=== PATIENT | female | born 1945 | race Caucasian/White ===

== ENCOUNTER 2017-10-19 15:13 | Inpatient (IN) | payer MEDICARE ==
[2017-10-19] MEDS ORDERED: NORMAL SALINE 1000 ML 1,000 ML IV ONE (15:56)
--- NOTE | 2017-10-19 15:58 | ER Document Report ---
ED Medical Screen (RME) - General Chief Complaint: Difficulty Swallowing Stated Complaint: LIGHTHEADED Time Seen by Provider: 10/19/17 15:44 Notes: RAPID MEDICAL EVALUATION DISCLOSURE I have seen this patient as part of a Rapid Medical Evaluation and, if applicable, placed any initially appropriate orders. The patient will be seen and fully evaluated, including a full history and physical exam, by a provider ( in Main ED or Fast Track) when a room becomes available. 70F recently dx w esophageal achalasia here w c/o gen weakness jittery fatigue over the past few days. She had a barium swallow performed at [facility] which did show almost complete obstruction and she was told she needed Esophageal Manometry and that [facility] does not offer this. She has not had anything to drink or eat over the past few days so she was sent here by Dr Phan her GI doctor. EXAM Poor skin turgor TRAVEL OUTSIDE OF THE [place] IN LAST 30 DAYS: No - Related Data Allergies/Adverse Reactions: No Known Allergies Allergy (Unverified 10/19/17 15:16) Past Medical History - Social History Chew tobacco use (# tins/day): No Frequency of alcohol use: Rare Drug Abuse: None Renal/ Medical History: Denies: Hx Peritoneal Dialysis Past Surgical History: Reports: Hx Hysterectomy, Hx Orthopedic Surgery - right wrist Physical Exam - Vital signs Vitals: Temp Pulse Resp BP Pulse Ox 98.7 F 81 17 143/65 H 95 10/19/17 15:22 10/19/17 15:22 10/19/17 15:22 10/19/17 15:22 10/19/17 15:22 Course - Vital Signs Vital signs: Temp Pulse Resp BP Pulse Ox 98.7 F 81 17 143/65 H 95 10/19/17 15:22 10/19/17 15:22 10/19/17 15:22 10/19/17 15:22 10/19/17 15:22
[2017-10-19 16:58] LABS: ABSOLUTE EOSINOPHILS # (AUTO) 0.1 10^3/uL (0.0-0.6); ABSOLUTE LYMPHOCYTES (AUTO) 1.5 10^3/uL (0.5-4.7); ABSOLUTE MONOCYTES (AUTO) 0.6 10^3/uL (0.1-1.4); ABSOLUTE NEUT (AUTO) 6.9 10^3/uL (1.7-8.2); BASOPHILS % (AUTO) 0.4 % (0-2); EOSINOPHILS % (AUTO) 1.1 % (0-6); HEMATOCRIT 41.7 % (36.0-47.0); LYMPHOCYTES % (AUTO) 16.5 % (13-45); MEAN CORPUSCULAR HEMOGLOBIN 29.5 pg (27.0-33.4); MEAN CORPUSCULAR HGB CONC 33.7 g/dL (32.0-36.0); MEAN CORPUSCULAR VOLUME 88 fl (80-97); MONOCYTES % (AUTO) 6.6 % (3-13); PLATELET COUNT 242 10^3/uL (150-450); RED BLOOD COUNT 4.75 10^6/uL (3.72-5.28); RED CELL DISTRIBUTION WIDTH 13.1 % (11.5-14.0); SEGMENTED NEUTROPHILS % (AUTO) 75.4 % (42-78); TOTAL CELLS COUNTED % (AUTO) 100 %; WHITE BLOOD COUNT 9.2 10^3/uL (4.0-10.5)
[2017-10-19 17:23] LABS: ANION GAP 17 (5-19)
[2017-10-19 17:24] LABS: ALANINE AMINOTRANSFERASE 26 U/L (9-52); ALBUMIN 4.4 g/dL (3.5-5.0); ALKALINE PHOSPHATASE 68 U/L (38-126); ASPARTATE AMINO TRANSFERASE 27 U/L (14-36); BILIRUBIN,DIRECT 0.4 mg/dL (0.0-0.4); BILIRUBIN,TOTAL 0.7 mg/dL (0.2-1.3); BLOOD UREA NITROGEN 22 mg/dL (7-20); CALCIUM 10.2 mg/dL (8.4-10.2); CARBON DIOXIDE 24 mmol/L (22-30); CHLORIDE 105 mmol/L (98-107); GLUCOSE 76 mg/dL (75-110); SODIUM 145.5 mmol/L (137-145); TOTAL PROTEIN 7.4 g/dL (6.3-8.2)
--- NOTE | 2017-10-19 20:28 | ER Document Report ---
ED General - General Chief Complaint: Difficulty Swallowing Stated Complaint: LIGHTHEADED Time Seen by Provider: 10/19/17 15:44 Notes: Patient is a 72 year old female who presents with a history of several months of progressively worsening dysphasia and odynophagia which has now progressed to inability to swallow even fluids for the past 2 days. She had an endoscopy done on the 13th of this month which showed probable achalasia with severe lower esophageal sphincter strictures. She had a barium swallow done today and no barium was noted to pass from the esophagus into the stomach. Patient also states that she has been feeling somewhat lightheaded over the past 2 days which is worse when she goes from a sitting to standing position. She denies any symptoms currently other than a mild, constant throat discomfort. No history of similar symptoms prior to the past several months. TRAVEL OUTSIDE OF THE [place] IN LAST 30 DAYS: No - Related Data Allergies/Adverse Reactions: No Known Allergies Allergy (Unverified 10/19/17 15:16) Past Medical History - General Information source: Patient - Social History Smoking Status: Never Smoker Chew tobacco use (# tins/day): No Frequency of alcohol use: Rare Drug Abuse: None Lives with: Family Family History: Reviewed & Not Pertinent Patient has suicidal ideation: No Patient has homicidal ideation: No Renal/ Medical History: Denies: Hx Peritoneal Dialysis Past Surgical History: Reports: Hx Hysterectomy, Hx Orthopedic Surgery - right wrist Review of Systems - Review of Systems Notes: Constitutional: Negative for fever. HENT: Positive for sore throat. Eyes: Negative for visual changes. Cardiovascular: Negative for chest pain. Respiratory: Negative for shortness of breath. Gastrointestinal: Positive for inability to swallow Genitourinary: Negative for dysuria. Musculoskeletal: Negative for back pain. Skin: Negative for rash. Neurological: Negative for headaches, weakness or numbness. 10 point ROS negative except as marked above and in HPI. Physical Exam - Vital signs Vitals: Temp Pulse Resp BP Pulse Ox 98.7 F 81 17 143/65 H 95 10/19/17 15:22 10/19/17 15:22 10/19/17 15:22 10/19/17 15:22 10/19/17 15:22 Interpretation: Hypertensive Notes: PHYSICAL EXAMINATION: GENERAL: Well-appearing, well-nourished and in no acute distress. HEAD: Atraumatic, normocephalic. EYES: Pupils equal round and reactive to light, extraocular movements intact, sclera anicteric, conjunctiva are normal. ENT: nares patent, oropharynx clear without exudates. Moderately dry mucous membranes. NECK: Normal range of motion, supple without lymphadenopathy LUNGS: Breath sounds clear to auscultation bilaterally and equal. No wheezes rales or rhonchi. HEART: Regular rate and rhythm without murmurs ABDOMEN: Soft, nontender, normoactive bowel sounds. No guarding, no rebound. No masses appreciated. EXTREMITIES: Normal range of motion, no pitting or edema. No cyanosis. NEUROLOGICAL: No focal neurological deficits. Moves all extremities spontaneously and on command. PSYCH: Normal mood, normal affect. SKIN: Warm, Dry, normal turgor, no rashes or lesions noted. Course - Re-evaluation Re-evalutation: 10/19/17 20:33 Patient presents with progressively worsening inability to swallow, now unable to swallow even water. She had an endoscopy done on the which showed findings consistent with severe achalasia. The patient had a barium swallow done as an outpatient and no barium passed through the lower esophagus into the stomach. The patient has been becoming increasingly lightheaded and has had progressive weight loss. Family is extraordinarily concerned about her inability to tolerate oral intake or tolerating her medications. They referred to the emergency department for further assessment. The patient does note some mild ongoing lightheadedness but denies any additional acute complaints. Exam unremarkable. Review of her endoscopy report does show near complete closure of the lower esophagus. Given her inability tolerate even fluids I do believe she requires hospitalization. I discussed with the turbine operator on-call who confirms that Dr. Riley is electron gun inspector tomorrow. I have therefore discussed with hospitalist Dr. Sarkar who has accepted the patient. 10/19/17 23:38 CT of the neck and chest is worrisome for possible malignancy versus achalasia as the etiology of today's symptoms. - Vital Signs Vital signs: Temp Pulse Resp BP Pulse Ox 97.7 F 81 17 135/57 H 99 10/19/17 22:35 10/19/17 15:22 10/19/17 15:22 10/19/17 22:00 10/19/17 22:35 - Laboratory Result Diagrams: 10/19/17 16:22 10/19/17 16:22 Laboratory results interpreted by me: 10/19/17 16:22 Sodium 145.5 H BUN 22 H Creatinine 0.51 L - Diagnostic Test Radiology reviewed: Reports reviewed Discharge - Discharge Clinical Impression: Inability to swallow, Lightheadedness, Dehydration Condition: Fair Disposition: ADMITTED INPATIENT Admitting Provider: Hospitalist Unit Admitted: Medical Floor
[2017-10-19 21:34] LABS: APPEARANCE,URINE SLIGHTLY-CLOUDY; BILIRUBIN,URINE NEGATIVE (NEGATIVE); COLOR,URINE YELLOW; GLUCOSE, URINE NEGATIVE (NEGATIVE); KETONES,URINE 80 mg/dL (NEGATIVE); LEUKOCYTE ESTERASE,URINE TRACE (NEGATIVE); NITRITE,URINE NEGATIVE (NEGATIVE); PROTEIN,URINE NEGATIVE (NEGATIVE); URINE SPECIFIC GRAVITY 1.024; UROBILINOGEN,URINE NEGATIVE mg/dL (<2.0)
[2017-10-19] MEDS ORDERED: NORMAL SALINE 1000 ML 1,000 ML IV PRN (21:36)
[2017-10-19] MEDS ORDERED: DEXTROSE 50%-WATER 25 GM/50 ML DISP.SYRIN IV PRN ×2 (21:42)
[2017-10-19] MEDS ORDERED: GLUCAGON,HUMAN RECOMB 1 MG INJ SUBCUT PRN (21:42)
[2017-10-19] MEDS ORDERED: DEXTROSE 40% GEL 15 GM TUBE PO PRN ×2 (21:42)
[2017-10-19] MEDS ORDERED: PANTOPRAZOLE SODIUM 40 MG in NORMAL SALINE 100 ML IV SCH (21:45)
--- NOTE | 2017-10-19 22:17 | RADIOLOGY REPORT (SQ) ---
EXAM DESCRIPTION: CT CHEST WITH COMPLETED DATE/TIME: 10/19/2017 9:40 pm REASON FOR STUDY: unable to swallow COMPARISON: None. TECHNIQUE: CT scan of the chest performed using helical scanning technique with dynamic intravenous contrast injection. Images reviewed with lung, soft tissue and bone windows. Reconstructed coronal and sagittal MPR images reviewed. All images stored on PACS. All CT scanners at this facility use dose modulation, iterative reconstruction, and/or weight based d osing when appropriate to reduce radiation dose to as low as reasonably achievable (ALARA). [facility]: Dose Right [facility]: CareDose [facility]: Dose Right [facility]: Teradose 4D [facility]: Trippeo CONTRAST TYPE AND DOSE: contrast/concentration: Isovue 370.00 mg/ml; Total Contrast Delivered: 80.0 ml; Total Saline Delivered: 50.0 ml RENAL FUNCTION: GFR > 60. RADIATION DOSE: CT Rad equipment meets quality standard of care and radiation dose reduction techniq ues were employed. CTDIvol: NaN mGy. DLP: 0 mGy-cm. . LIMITATIONS: None. FINDINGS: LUNGS AND PLEURA: 2.4 cm spiculated mass in the right upper lobe. 2.7 cm density at the l eft base question scar versus infiltrate HILAR AND MEDIASTINAL STRUCTURES: Massive dilatation of the thoracic esophagus. Contains contrast. Assume the patient was given oral contrast. There is generalized thickening of the wall of the esoph elodia distally. A discrete mass is not noted. HEART AND VASCULAR STRUCTURES: No aneurysm or dissection. No central pulmonary emboli. No pericardi al effusion. HARDWARE: None in the chest. UPPER ABDOMEN: No mass identified in the stomach. THYROID AND OTHER SOFT TISSUES: No masses. No adenopathy. BONES: No significant finding. OTHER: No other significant finding. IMPRESSION: Massive dilatation of esophagus. Contains contrast. Generalized thickening of the esop hageal wall distally but no definitive mass lesion in either in the distal esophagus or in the proxim al stomach. Possibly achalasia. 2.4 cm spiculated mass in the right upper lobe. 2.7 cm opacity at the left base which may represent scar infiltrate. TECHNICAL DOCUMENTATION: JOB ID: [id number] Quality ID # [id number]: Final reports with documentation of one or more dose reduction techniques (e.g., Au tomated exposure control, adjustment of the mA and/or kV according to patient size, use of iterative reconstruction technique) 2010 [employer] All Rights Reserved Reading location - IP/workstation name: [email or web address]
--- NOTE | 2017-10-19 22:36 | RADIOLOGY REPORT (SQ) ---
EXAM DESCRIPTION: CT SOFT TISSUE NECK WITH COMPLETED DATE/TIME: 10/19/2017 9:40 pm REASON FOR STUDY: unable to swallow COMPARISON: None. TECHNIQUE: Post IV contrasted scanning from skull base through lung apices with review of bone, soft tissue and lung windows. Reconstructed coronal and sagittal MPR images reviewed. All images stored on PACS. All CT scanners at this facility use dose modulation, iterative reconstruction, and/or weight based d osing when appropriate to reduce radiation dose to as low as reasonably achievable (ALARA). [facility]: Dose Right [facility]: CareDose [facility]: Dose Right [facility]: Teradose 4D [facility]: Pigit CONTRAST TYPE AND DOSE: 80.3 Isovue 370- low osmolar. RENAL FUNCTION: GFR > 60. RADIATION DOSE: . LIMITATIONS: None. FINDINGS: SKULL BASE: Intact. MAJOR SALIVARY GLANDS: No solid or cystic masses. No inflammatory changes. LYMPHADENOPATHY: No adenopathy. MUCOSAL MASSES OR ASYMMETRY: No mucosal masses or asymmetry. LARYNX/CORDS: Nodular changes at the level of the larynx. Worrisome for mass lesion on the right smiley e. VASCULAR STRUCTURES: The major vessels are patent. LUNG APICES: See chest CT BONES: Intact. THYROID: Cysts and calcifications in the right lobe. The PARANASAL SINUSES: Clear. OTHER: Dilated upper esophagus. IMPRESSION: Nodular changes at the level of the larynx worrisome for mass lesion on the right side. Cysts and calcification right lobe of the thyroid gland. COMMENT: Recommend thyroid ultrasound. TECHNICAL DOCUMENTATION: JOB ID: [id number] Quality ID # [id number]: Final reports with documentation of one or more dose reduction techniques (e.g., Au tomated exposure control, adjustment of the mA and/or kV according to patient size, use of iterative reconstruction technique) 2010 [employer]- All Rights Reserved Reading location - IP/workstation name: [email or web address]
[2017-10-19] MEDS: PANTOPRAZOLE SODIUM 40 MG VIAL IV SCH (23:35)
[2017-10-20] MEDS ORDERED: DEXTROSE 5%-NORMAL SALINE 1,000 ML IV PRN (00:04)
--- NOTE | 2017-10-20 01:04 | PDOC H&P ---
History of Present Illness Admission Date/PCP: 10/19/17 20:54 Patient complains of: Difficulty swallowing History of Present Illness: KAITLYNN LOPEZ is a 72 year old female who presents to the emergency department with a history of frequently swallowing that has been progressing for the last year, dysphagia, odynophagia that she refers has GERD that has been worsening since last November. For the last 2 days patient has been unable to swallow liquids, solids, if she swallows her pills after a few sips of water vomits all of them. Patient is following with GI, Dr.Eric Rodriguez, had a recent EGD October 16 findings dilatation in the upper third and middle third of the esophagus with a stenosis in the lower third of the esophagus was severe, probably achalasia. Recommended to perform a barium swallow which was done today. Walker poorly after procedure and was shaking. The patient was feeling lightheaded/dizziness as per her inability to swallow it was recommended to come to the emergency department. Fortunately we have GI tomorrow and Dr. Geiger was contacted by the ED attending. Daughter tells me that the patient needs an esophageal manometry that only can be done in this hospital. CT neck and chest was requested by the ED attending's he tells me that that is part of the workup that was requesting. Denies fever, cough, chest pain, shortness of breath, abdominal pain, diarrhea or constipation or changes in her urine. Past Medical History Past Medical History: No past medical history Medical History: None Cardiac Medical History: Denies: Congestive Heart Failure, Myocardial Infarction, Hypertension Pulmonary Medical History: Denies: Asthma, Bronchitis, Chronic Obstructive Pulmonary Disease (COPD), Pneumonia, Tuberculosis Neurological Medical History: Denies: Seizures Renal/ Medical History: Denies: End Stage Renal Disease GI Medical History: Denies: Cirrhosis, Gastroesophageal Reflux Disease Musculoskeltal Medical History: Denies: Arthritis Psychiatric Medical History: Denies: Bipolar Disorder, Depression Hematology: Denies: Anemia, Bleeding Tendencies Past Surgical History Past Surgical History: Reports: Hysterectomy, Orthopedic Surgery - right wrist Social History Lives with: Family Smoking Status: Never Smoker Frequency of Alcohol Use: None Hx Recreational Drug Use: No - Advance Directive Resuscitation Status: Do Not Resuscitate Family History Family History: Reviewed & Not Pertinent Parental Family History Reviewed: No Children Family History Reviewed: No Sibling(s) Family History Reviewed.: No Medication/Allergy Home Medications: No Home Medications 10/19/17 Allergies/Adverse Reactions: No Known Allergies Allergy (Unverified 10/19/17 15:16) Review of Systems Review of Systems: As outlined in the HPI, all others negative Physical Exam Vital Signs: Temp Pulse Resp BP Pulse Ox 97.8 F 65 17 133/52 H 96 10/19/17 23:50 10/19/17 23:50 10/19/17 23:50 10/19/17 23:50 10/19/17 23:50 Intake & Output 10/18/17 10/19/17 10/20/17 06:59 06:59 06:59 Weight 58.8 kg Additional comments: General appearance: Well-developed, well-nourished, alert and cooperative, and appears to be in no acute distress Head: Normocephalic Eyes: PEERL, EOMI, vision is grossly intact. Ears: External auditory canal and tympanic membranes dry, hearing grossly intact. Nose: No nasal discharge. Throat: Oral cavity and pharynx normal. No inflammation, swelling, exudate or lesions. Neck: Neck supple, nontender without lymphadenopathy, masses or thyromegaly. Cardiac: Normal S1 and S2. No S3, S4 or murmurs. Rhythm is regular. There is no peripheral edema, cyanosis or pallor. Extremities are warm and well perfused. Capillary refill is less than 2 seconds. No carotid bruits. Lungs: Clear to auscultation and percussion without rales, rhonchi, wheezing or diminished breath sounds. Not using accessory muscles. Abdomen: Positive bowel sounds. Soft. Nondistended, nontender. No guarding or rebound. No masses. No hepatosplenomegaly Extremities: No significant deformity or joint abnormality. No edema. Peripheral pulses intact. No varicosities. Neurological: Cranial nerves II through XII grossly intact. Strength and sensation symmetric and intact throughout. Reflexes 2+ throughout. Skin: Skin normal color, texture and turgor with no lesions or eruptions, warm and dry. Psychiatric: The mental examination revealed the patient was oriented to person , place, and time. The patient was able to demonstrate good judgment on recent , without hallucinations, abnormal affect or abnormal behaviors. Results Laboratory Results: 10/19/17 21:05 Urine Color YELLOW Urine Appearance SLIGHTLY-CLOUDY Urine pH 5.0 Ur Specific [place] 1.024 Urine Protein NEGATIVE Urine Glucose (UA) NEGATIVE Urine Ketones 80 H Urine Blood SMALL H Urine Nitrite NEGATIVE Ur Leukocyte Esterase TRACE H Urine WBC (Auto) 15 Urine RBC (Auto) 3 Impressions: Chest CT 10/19/17 20:20 IMPRESSION: Massive dilatation of esophagus. Contains contrast. Generalized thickening of the esophageal wall distally but no definitive mass lesion in either in the distal esophagus or in the proximal stomach. Possibly achalasia. 2.4 cm spiculated mass in the right upper lobe. 2.7 cm opacity at the left base which may represent scar infiltrate. Soft Tissue Neck CT 10/19/17 20:20 IMPRESSION: Nodular changes at the level of the larynx worrisome for mass lesion on the right side. Cysts and calcification right lobe of the thyroid gland. Assessment & Plan - Diagnosis (1) Achalasia of esophagus Is this a current diagnosis for this admission?: Yes Plan: Patient comes with difficulty swallowing that has been worsening for the last 2 days. Patient follows with GI and so far has had an EGD and barium swallow within the last week. Apparently the plan is to do an esophageal manometry, we have GI tomorrow and consultation will be placed. For now the patient will be kept n.p.o., with IV fluids. We will give IV Protonix. CT neck and chest has been done as part of the GI workup. Possible laringeal cancer identified. (2) Dehydration Is this a current diagnosis for this admission?: Yes Plan: Likely the origin of her dizziness, patient was started on IV fluids with normal saline and I had to change it to D5 with normal saline secondary to her hypoglycemia. (3) Hypoglycemia Is this a current diagnosis for this admission?: Yes Plan: Nurse called me after patient was on the floor and tells me that her blood sugar was 67, I started the patient on D5 with normal saline running at 75 cc/ h. Accu-Cheks every 6 hours. - Time Time Spent: 30 to 50 Minutes Medications reviewed and adjusted accordingly: Yes Anticipated discharge: Home Within: within 48 hours
[2017-10-20 05:36] LABS: ANION GAP 15 (5-19); BLOOD UREA NITROGEN 15 mg/dL (7-20); CALCIUM 9.2 mg/dL (8.4-10.2); CARBON DIOXIDE 20 mmol/L (22-30); CHLORIDE 111 mmol/L (98-107); GLUCOSE 97 mg/dL (75-110); POTASSIUM 3.8 mmol/L (3.6-5.0); SODIUM 145.5 mmol/L (137-145)
[2017-10-20] MEDS: ENOXAPARIN SODIUM INJ 40 MG/0.4 ML DISP.SYRIN SUBCUT SCH (09:36)
--- NOTE | 2017-10-20 10:53 | Physician Advisory Note ---
Physician Advisor ProgressNote .: Pursuant to the plan for [facility], I have reviewed the medical record for this patient. Physician Advisor Statement: Nice documentation of achalasia w/possible laryngeal CA/inability to keep down any liquids/nutrition x 2-3 days (after increasing difficulty x mo.s). Please consider documenting, if you agree: 1. "Acute hypernatremia, due to " 2. "suspected protein-calorie malnutrition [state mild, mod, or severe] with BMI 22.3, ____[wt loss of >10% over 6mo has been documented by nursing, ]" [if possible, give specifics on intake, wt loss, loss of SQ fat & muscle mass, diminished hand microbiology lab manager strength, & clinical importance such as (A) nutritional assessment ordered, (B) modified diet or supplements ordered, (C) additional labs ordered, (D) prolonged wound healing time, (E) delayed infxn clearance] 3. Medical necessity: Please document clinical reasons pt not yet safe for d/ c home later today, & then may change to Inpatient status. 4. If it doesn't get ruled out, please continue to document the "possible laryngeal CA" through to [facility]. Thanks! CK
--- NOTE | 2017-10-20 11:47 | PDOC PROGRESS REPORT ---
<VICKFEDERICAANNIKA - Last Filed: 10/20/17 11:47> Subjective Progress Note for:: 10/20/17 Subjective:: Barby Morrison is a pleasant, thin female seen resting in bed. She is awake, alert and oriented 3. Her sister is at her bedside. She denies any chest pain, shortness of breath or dyspnea at rest. She states she has had a worsening cough over the last year. Primarily the cough is productive, but is very harsh and it has caused her to vomit at times. Her main complaint is severe , worsening dysphagia to even liquids over the last 3 days. She states she has lost 8 lbs over the last week. She has been seeing Dr Phan, product safety test engineer , as an outpatient and is being worked up for possible achalasia. She underwent barium swallow yesterday at [facility] and barium did not pass through. She has become extremely weak and lightheaded due to dehydration. She denies any nausea, abdominal pain or diarrhea. She denies any headaches. She denies any fevers or chills. Reason For Visit: DYSPHAGIA Physical Exam Vital Signs: Temp Pulse Resp BP Pulse Ox 97.6 F 64 12 128/51 H 97 10/20/17 07:29 10/20/17 07:29 10/20/17 07:29 10/20/17 07:29 10/20/17 07:29 Intake & Output 10/19/17 10/20/17 10/21/17 06:59 06:59 06:59 Weight 58.8 kg General appearance: PRESENT: no acute distress, thin, well-developed Head exam: PRESENT: atraumatic, normocephalic Eye exam: PRESENT: conjunctiva pink, EOMI, PERRLA. ABSENT: scleral icterus Ear exam: PRESENT: normal external ear exam Mouth exam: PRESENT: moist, tongue midline Neck exam: PRESENT: tenderness - to palpation along both sides of her lower neck. ABSENT: carotid bruit, JVD, lymphadenopathy, thyromegaly Respiratory exam: PRESENT: clear to auscultation chad. ABSENT: rales, rhonchi, wheezes Cardiovascular exam: PRESENT: RRR. ABSENT: diastolic murmur, rubs, systolic murmur Pulses: PRESENT: normal dorsalis pedis pul Vascular exam: PRESENT: normal capillary refill GI/Abdominal exam: PRESENT: normal bowel sounds, soft. ABSENT: distended, guarding, mass, organolmegaly, rebound, tenderness Rectal exam: PRESENT: deferred Extremities exam: PRESENT: full ROM. ABSENT: calf tenderness, clubbing, pedal edema Musculoskeletal exam: PRESENT: ambulatory, full ROM, normal inspection Neurological exam: PRESENT: alert, awake, oriented to person, oriented to place , oriented to time, oriented to situation, CN II-XII grossly intact. ABSENT: motor sensory deficit Psychiatric exam: PRESENT: appropriate affect, normal mood. ABSENT: homicidal ideation, suicidal ideation Skin exam: PRESENT: dry, intact, warm. ABSENT: cyanosis, rash Results Laboratory Results: 10/20/17 03:58 10/19/17 10/20/17 21:05 03:58 Sodium 145.5 H Potassium 3.8 Chloride 111 H Carbon Dioxide 20 L Anion Gap 15 BUN 15 Creatinine 0.47 L Est GFR ( Amer) > 60 Est GFR (Non-Af Amer) > 60 Glucose 97 Calcium 9.2 Magnesium 1.9 Urine Color YELLOW Urine Appearance SLIGHTLY-CLOUDY Urine pH 5.0 Ur Specific [place] 1.024 Urine Protein NEGATIVE Urine Glucose (UA) NEGATIVE Urine Ketones 80 H Urine Blood SMALL H Urine Nitrite NEGATIVE Ur Leukocyte Esterase TRACE H Urine WBC (Auto) 15 Urine RBC (Auto) 3 Impressions: Chest CT 10/19/17 20:20 IMPRESSION: Massive dilatation of esophagus. Contains contrast. Generalized thickening of the esophageal wall distally but no definitive mass lesion in either in the distal esophagus or in the proximal stomach. Possibly achalasia. 2.4 cm spiculated mass in the right upper lobe. 2.7 cm opacity at the left base which may represent scar infiltrate. Soft Tissue Neck CT 10/19/17 20:20 IMPRESSION: Nodular changes at the level of the larynx worrisome for mass lesion on the right side. Cysts and calcification right lobe of the thyroid gland. Assessment & Plan - Diagnosis (1) Dysphagia QualifierTitle: Dysphagia type: pharyngoesophageal phase Qualified Code(s ): R13.14 - Dysphagia, pharyngoesophageal phase Is this a current diagnosis for this admission?: Yes Plan: Patient has had progressive severe dysphagia to the point of not even being able to swallow liquids this week. She has had an 8 pound weight loss over the last 7 days. She was seen by Dr. Jhoan Lozano, product safety test engineer, as an outpatient. She was thought to have possible achalasia. She had previous EGD. She underwent barium esophagram yesterday and barium did not go through. She has become progressively weak and lightheaded due to dehydration. Case was discussed with Dr. Oviedo, product safety test engineer. There is concern for possible laryngeal mass being a laryngeal cancer which could be causing a pseudo- achalasia. Her distal esophagus is also noted to to have wall thickening as well as dilatation. Plan for repeat EGD with Dr. Riley. Dr. Jane, ENT surgeon consulted as well. (2) Mass of right lung Is this a current diagnosis for this admission?: Yes Plan: Patient has a 2.4 spiculated upper lobe lung mass, very concerning for malignancy. She is a life long nonsmoker, but was exposed to second hand smoke as a child. She has had worsening harsh cough over the last year. Cases was discussed with Dr Singer, oncologist, who will see the patient as well. Findings regarding the CT of her neck and chest were discussed with the patient , and at the patient's consent, her sister and her daughter Belen. Patient's is in a skilled nursing with Alzheimer's disease (3) Inability to swallow Is this a current diagnosis for this admission?: Yes Plan: Continue IV D51/2NS for hydration for now. (4) Nodule of larynx Is this a current diagnosis for this admission?: Yes Plan: ENT surgery consult pending (5) Lightheadedness Is this a current diagnosis for this admission?: Yes Plan: Secondary to dehydration and hypoglycemia due to inability to swallow (6) Metabolic acidosis Is this a current diagnosis for this admission?: Yes Plan: Likely secondary to dehydration and lack of adequate dietary intake (7) Hypernatremia Is this a current diagnosis for this admission?: Yes Plan: Secondary to dehydration due to above problems. Will change fluids to D51/2NS (8) Protein-calorie malnutrition, moderate Is this a current diagnosis for this admission?: Yes Plan: Evidenced by BMI of 22. She has always been thin, but has lost 8 lbs over the last week due to inability to eat and drink. She may require PEG for nutrition (9) Hypoglycemia Is this a current diagnosis for this admission?: Yes Plan: Secondary to severe dysphagia and inability to eat or drink - Time Time Spent with patient: 35 or more minutes Total Critical Time (Minutes): 35 Medications reviewed and adjusted accordingly: Yes - Inpatient Certification Based on my medical assessment, after consideration of the patient's comorbidities, presenting symptoms, or acuity I expect that the services needed warrant INPATIENT care.: Yes I certify that my determination is in accordance with my understanding of Medicare's requirements for reasonable and necessary INPATIENT services [42 CFR 412.3e].: Yes Medical Necessity: Failure to Improve With Outpatient Therapy, Need For IV Fluids, Risk of Complication if Not Cared For in Hospital <LAURITA JONES M - Last Filed: 10/20/17 18:06> Subjective Reason For Visit: DYSPHAGIA,ACHALASIA,DEHYDRATION,HYPOGLYCEMIA Physical Exam Vital Signs: Temp Pulse Resp BP Pulse Ox 98.2 F 63 14 136/54 H 97 10/20/17 16:10 10/20/17 16:10 10/20/17 16:10 10/20/17 16:10 10/20/17 16:10 Intake & Output 10/19/17 10/20/17 10/21/17 06:59 06:59 06:59 Weight 58.8 kg Results Laboratory Results: 10/20/17 03:58 10/19/17 10/20/17 21:05 03:58 Sodium 145.5 H Potassium 3.8 Chloride 111 H Carbon Dioxide 20 L Anion Gap 15 BUN 15 Creatinine 0.47 L Est GFR ( Amer) > 60 Est GFR (Non-Af Amer) > 60 Glucose 97 Calcium 9.2 Magnesium 1.9 Urine Color YELLOW Urine Appearance SLIGHTLY-CLOUDY Urine pH 5.0 Ur Specific [place] 1.024 Urine Protein NEGATIVE Urine Glucose (UA) NEGATIVE Urine Ketones 80 H Urine Blood SMALL H Urine Nitrite NEGATIVE Ur Leukocyte Esterase TRACE H Urine WBC (Auto) 15 Urine RBC (Auto) 3 Impressions: Chest CT 10/19/17 20:20 IMPRESSION: Massive dilatation of esophagus. Contains contrast. Generalized thickening of the esophageal wall distally but no definitive mass lesion in either in the distal esophagus or in the proximal stomach. Possibly achalasia. 2.4 cm spiculated mass in the right upper lobe. 2.7 cm opacity at the left base which may represent scar infiltrate. Soft Tissue Neck CT 10/19/17 20:20 IMPRESSION: Nodular changes at the level of the larynx worrisome for mass lesion on the right side. Cysts and calcification right lobe of the thyroid gland. Provider Note Provider Note: I have discussed the patient in detail with NIYAH Truong. I am in agreement with her evaluation and plan.
[2017-10-20] MEDS ORDERED: DEXTROSE 5%-1/2 NORMAL SALINE 1,000 ML IV ONE (13:19)
--- NOTE | 2017-10-20 13:30 | PDOC CONSULTATION ---
Consultation Consult Date: 10/20/17 Attending physician:: LILIBETH WALKER Consult reason:: thickening of the esophagus with dysphagia History of Present Illness Admission Date/PCP: 10/19/17 20:54 History of Present Illness: KAITLYNN LOPEZ is a 72 year old female patient presented to the ED not being able tolerate oral intake patient found to have possible lung lesion had a barium swallow yesterday that showed dilated esophagus patient has been having dysphagia has had some weight loss patient has seen Dr Rodriguez in the past ? if had recent EGD done asked to see patient work up basically incomplete has possible lesion that could be giving a pseudoachalasia type picture will need repeat EGD Oncology is on board Past Medical History Cardiac Medical History: Denies: Congestive Heart Failure, Myocardial Infarction, Hypertension Pulmonary Medical History: Denies: Asthma, Bronchitis, Chronic Obstructive Pulmonary Disease (COPD), Pneumonia, Tuberculosis Neurological Medical History: Denies: Seizures Renal/ Medical History: Denies: End Stage Renal Disease GI Medical History: Denies: Cirrhosis, Gastroesophageal Reflux Disease Musculoskeltal Medical History: Denies: Arthritis Psychiatric Medical History: Denies: Bipolar Disorder, Depression Hematology: Denies: Anemia, Bleeding Tendencies Past Surgical History Past Surgical History: Reports: Hysterectomy, Orthopedic Surgery - right wrist Social History Lives with: Family Smoking Status: Never Smoker Frequency of Alcohol Use: None Hx Recreational Drug Use: No - Advance Directive Resuscitation Status: Do Not Resuscitate Family History Family History: Reviewed & Not Pertinent Parental Family History Reviewed: Yes Children Family History Reviewed: Unknown Sibling(s) Family History Reviewed.: Unknown Medication/Allergy Home Medications: Multivit/Folic Acid/Vit K1 [One-A-Day Women's 50 Plus Tab] 1 each PO DAILY 10/20 Allergies/Adverse Reactions: No Known Allergies Allergy (Unverified 10/20/17 09:53) Review of Systems Constitutional: PRESENT: weakness. ABSENT: fever(s), headache(s), night sweats Eyes: ABSENT: visual disturbances Ears: ABSENT: hearing changes Nose, Mouth, and Throat: ABSENT: mouth pain, sore throat Cardiovascular: ABSENT: orthropnea, palpitations Respiratory: ABSENT: dyspnea, hemoptysis Gastrointestinal: PRESENT: dysphagia. ABSENT: diarrhea, hematochezia, melena Genitourinary: ABSENT: dysuria, hematuria Musculoskeletal: ABSENT: joint swelling Integumentary: ABSENT: pruritus Neurological: ABSENT: syncope, tingling, tremor(s), vertigo Endocrine: ABSENT: polydipsia, polyphagia, polyuria Hematologic/Lymphatic: ABSENT: easy bruising Physical Exam Vital Signs: Temp Pulse Resp BP Pulse Ox 98.0 F 65 16 134/52 H 98 10/20/17 11:02 10/20/17 11:02 10/20/17 11:02 10/20/17 11:02 10/20/17 11:02 Intake & Output 10/19/17 10/20/17 10/21/17 06:59 06:59 06:59 Weight 58.8 kg General appearance: PRESENT: cooperative, mild distress Head exam: PRESENT: atraumatic, normocephalic Eye exam: PRESENT: EOMI, PERRLA. ABSENT: nystagmus, periorbital swelling, scleral icterus Mouth exam: PRESENT: moist, neck supple Throat exam: ABSENT: tonsillar exudate, tonsillogmegaly Neck exam: ABSENT: meningismus, tenderness, thyromegaly Respiratory exam: PRESENT: symmetrical, unlabored. ABSENT: tachypnea, wheezes Cardiovascular exam: PRESENT: RRR, +S1, +S2 GI/Abdominal exam: PRESENT: soft. ABSENT: rebound, rigid, tenderness Extremities exam: ABSENT: joint swelling Musculoskeletal exam: PRESENT: full ROM Neurological exam: PRESENT: alert, awake, oriented to time, oriented to situation, CN II-XII grossly intact Focused psych exam: ABSENT: restlessness Skin exam: PRESENT: normal color. ABSENT: mottled, pallor, urticaria, vesicles Results Laboratory Results: 10/20/17 03:58 10/19/17 10/20/17 21:05 03:58 Sodium 145.5 H Potassium 3.8 Chloride 111 H Carbon Dioxide 20 L Anion Gap 15 BUN 15 Creatinine 0.47 L Est GFR ( Amer) > 60 Est GFR (Non-Af Amer) > 60 Glucose 97 Calcium 9.2 Magnesium 1.9 Urine Color YELLOW Urine Appearance SLIGHTLY-CLOUDY Urine pH 5.0 Ur Specific [place] 1.024 Urine Protein NEGATIVE Urine Glucose (UA) NEGATIVE Urine Ketones 80 H Urine Blood SMALL H Urine Nitrite NEGATIVE Ur Leukocyte Esterase TRACE H Urine WBC (Auto) 15 Urine RBC (Auto) 3 Impressions: Chest CT 10/19/17 20:20 IMPRESSION: Massive dilatation of esophagus. Contains contrast. Generalized thickening of the esophageal wall distally but no definitive mass lesion in either in the distal esophagus or in the proximal stomach. Possibly achalasia. 2.4 cm spiculated mass in the right upper lobe. 2.7 cm opacity at the left base which may represent scar infiltrate. Soft Tissue Neck CT 10/19/17 20:20 IMPRESSION: Nodular changes at the level of the larynx worrisome for mass lesion on the right side. Cysts and calcification right lobe of the thyroid gland. Assessment & Plan - Diagnosis (1) Inability to swallow Is this a current diagnosis for this admission?: Yes Plan: has dysphagia has seen Dr Rodriguez recently had barium swallow yesterday, no passage of barium thru EG junction with dilated esophagus has new lung lesion patient may have had EGD in the past no apparent report of obstruction ? pseudoachalasia will need repeat EGD Risks, benefits and alternatives are discussed will place on schedule spoke with Ms Truong - Time Time Spent: 50 to 70 Minutes
[2017-10-20] MEDS: PANTOPRAZOLE SODIUM 40 MG VIAL IV SCH (21:22)
[2017-10-21 07:41] LABS: ANION GAP 11 (5-19); BLOOD UREA NITROGEN 9 mg/dL (7-20); CALCIUM 9.2 mg/dL (8.4-10.2); CARBON DIOXIDE 20 mmol/L (22-30); CHLORIDE 113 mmol/L (98-107); GLUCOSE 89 mg/dL (75-110); POTASSIUM 3.4 mmol/L (3.6-5.0); SODIUM 144.3 mmol/L (137-145)
--- NOTE | 2017-10-21 08:21 | PDOC CONSULTATION ---
Consultation Consult Date: 10/21/17 Attending physician:: LAURITA JONES Consult reason:: Concern of esophageal mass, right-sided laryngeal mass, thyroid abnormality, dysphagia History of Present Illness Admission Date/PCP: 10/20/17 12:59 Patient complains of: Dysphasia, nausea and vomiting, weight loss History of Present Illness: KAITLYNN LOPEZ is a 72 year old female with a one-year history of dysphasia, up to this point she has been followed closely by gastroenterology who feels like this is achalasia. There have been things done to her esophagus that have improved things for a short period of time but it seems to continue to worsen. However over the last 1 week, she has had complete dysphagia to solids and liquids, nothing seems to be going down, ultimately she presented here because of that, in addition she lost about 10 pounds over the last 1-2 weeks. She had imaging done with soft tissue CT of the neck, this indicated an abnormality on the right side of larynx, concerning for a mass, there also is thyroid calcifications in the thyroid looks abnormal as well. CT of the chest was also done, and there is thickening of the lower esophageal area, that could be consistent with achalasia versus mass. There is also a 2.4 cm spiculated mass in the right lung.. Of note she is not having any pain anywhere else. She does not have any personal smoking or drinking history. Past Medical History Cardiac Medical History: Denies: Congestive Heart Failure, Myocardial Infarction, Hypertension Pulmonary Medical History: Denies: Asthma, Bronchitis, Chronic Obstructive Pulmonary Disease (COPD), Pneumonia, Tuberculosis Neurological Medical History: Denies: Seizures Renal/ Medical History: Denies: End Stage Renal Disease GI Medical History: Denies: Cirrhosis, Gastroesophageal Reflux Disease Musculoskeltal Medical History: Denies: Arthritis Psychiatric Medical History: Denies: Bipolar Disorder, Depression Hematology: Denies: Anemia, Bleeding Tendencies Past Surgical History Past Surgical History: Reports: Hysterectomy, Orthopedic Surgery - right wrist Social History Information Source: Patient Lives with: Family Smoking Status: Never Smoker Frequency of Alcohol Use: None Hx Recreational Drug Use: No - Advance Directive Resuscitation Status: Do Not Resuscitate Family History Family History: Reviewed & Not Pertinent Parental Family History Reviewed: Yes Children Family History Reviewed: Yes Sibling(s) Family History Reviewed.: Yes Medication/Allergy Home Medications: Multivit/Folic Acid/Vit K1 [One-A-Day Women's 50 Plus Tab] 1 each PO DAILY 10/20 Allergies/Adverse Reactions: No Known Allergies Allergy (Unverified 10/20/17 09:53) Review of Systems Constitutional: PRESENT: fatigue, weakness, weight loss Nose, Mouth, and Throat: PRESENT: sore throat Gastrointestinal: PRESENT: dysphagia, heartburn, nausea, vomiting Musculoskeletal: ABSENT: joint swelling Neurological: ABSENT: abnormal gait, abnormal speech, confusion, dizziness, focal weakness, syncope Physical Exam Vital Signs: Temp Pulse Resp BP Pulse Ox 97.6 F 58 L 16 119/47 L 97 10/20/17 23:14 10/20/17 23:14 10/20/17 23:14 10/20/17 23:14 10/20/17 23:14 Intake & Output 10/20/17 10/21/17 10/22/17 06:59 06:59 06:59 Weight 60 kg General appearance: PRESENT: no acute distress, well-developed, well-nourished Head exam: PRESENT: atraumatic, normocephalic Eye exam: PRESENT: conjunctiva pink, EOMI, PERRLA. ABSENT: scleral icterus Ear exam: PRESENT: normal external ear exam Mouth exam: PRESENT: moist, tongue midline Neck exam: ABSENT: carotid bruit, JVD, lymphadenopathy, thyromegaly Respiratory exam: PRESENT: clear to auscultation chad. ABSENT: rales, rhonchi, wheezes Cardiovascular exam: PRESENT: RRR. ABSENT: diastolic murmur, rubs, systolic murmur Pulses: PRESENT: normal dorsalis pedis pul Vascular exam: PRESENT: normal capillary refill GI/Abdominal exam: PRESENT: normal bowel sounds, soft. ABSENT: distended, guarding, mass, organolmegaly, rebound, tenderness Rectal exam: PRESENT: deferred Extremities exam: PRESENT: full ROM. ABSENT: calf tenderness, clubbing, pedal edema Neurological exam: PRESENT: alert, awake, oriented to person, oriented to place , oriented to time, oriented to situation, CN II-XII grossly intact. ABSENT: motor sensory deficit Psychiatric exam: PRESENT: appropriate affect, normal mood. ABSENT: homicidal ideation, suicidal ideation Skin exam: PRESENT: dry, intact, warm. ABSENT: cyanosis, rash Results Laboratory Results: 10/21/17 06:19 10/21/17 06:19 Sodium 144.3 Potassium 3.4 L Chloride 113 H Carbon Dioxide 20 L Anion Gap 11 BUN 9 Creatinine 0.41 L Est GFR ( Amer) > 60 Est GFR (Non-Af Amer) > 60 Glucose 89 Calcium 9.2 Impressions: Chest CT 10/19/17 20:20 IMPRESSION: Massive dilatation of esophagus. Contains contrast. Generalized thickening of the esophageal wall distally but no definitive mass lesion in either in the distal esophagus or in the proximal stomach. Possibly achalasia. 2.4 cm spiculated mass in the right upper lobe. 2.7 cm opacity at the left base which may represent scar infiltrate. Soft Tissue Neck CT 10/19/17 20:20 IMPRESSION: Nodular changes at the level of the larynx worrisome for mass lesion on the right side. Cysts and calcification right lobe of the thyroid gland. Status: Image reviewed by me Assessment & Plan - Diagnosis (1) Laryngeal mass Is this a current diagnosis for this admission?: Yes Plan: Unknown if this is the cause of her swallowing difficulty, I have discussed her case with Dr. Baker, ENT who needs to see her and consider nasopharyngoscopy at least to look at the larynx. In addition he looked at the CT and felt that the thyroid looks abnormal as well, so thyroid ultrasound was done and this is pending. (2) Mass of right lung Is this a current diagnosis for this admission?: Yes Plan: At this point I would not consider CT-guided biopsy of this area, she has a never smoking history, so primary lung cancer becomes less likely, prior to doing any sort of biopsy of this area I would favor getting her to an outpatient setting and planning for PET/CT, and only doing biopsy to a PET positive area. (3) Dysphagia Qualifiers: Dysphagia type: pharyngoesophageal phase Qualified Code(s): R13.14 - Dysphagia, pharyngoesophageal phase Is this a current diagnosis for this admission?: Yes Plan: Her history it does seem like possible achalasia, although mass in the esophagus could not be ruled out, Dr. Riley will plan for scope today. Unsure if either the laryngeal area or the thyroid is playing into this. - Time Time Spent: Greater than 70 Minutes - Inpatient Certification Based on my medical assessment, after consideration of the patient's comorbidities, presenting symptoms, or acuity I expect that the services needed warrant INPATIENT care.: Yes I certify that my determination is in accordance with my understanding of Medicare's requirements for reasonable and necessary INPATIENT services [42 CFR 412.3e].: Yes Medical Necessity: Need For IV Fluids, Need for Surgery, Risk of Complication if Not Cared For in Hospital
--- NOTE | 2017-10-21 09:08 | RADIOLOGY REPORT (SQ) ---
EXAM DESCRIPTION: U/S THYROID/SFT TISS HD NECK COMPLETED DATE/TIME: 10/21/2017 7:36 am REASON FOR STUDY: Thyroid nodules COMPARISON: CT soft tissue neck 10/19/2017 TECHNIQUE: Dynamic and static booker-scale images acquired of the thyroid gland. Selected additional c olor/power Doppler images recorded. All images stored to PACS. LIMITATIONS: None. FINDINGS: The thyroid gland is overall normal in size, right lobe thyroid 3.9 x 1 x 1.7 cm in size. Left lobe 3.8 x 1.7 x 0.8 cm in size. Normal thickness of the thyroid isthmus less than 2 mm in thi ckness. There are multiple benign colloid cysts scattered throughout the thyroid gland, less than 7 mm in siz e. Benign coarse dense calcification right lower pole thyroid gland. IMPRESSION: Multiple benign-appearing colloid cysts and benign right lower pole thyroid calcificatio n. TECHNICAL DOCUMENTATION: JOB ID: [id number] [employer]- All Rights Reserved Reading location - IP/workstation name: [email or web address]
[2017-10-21] MEDS ORDERED: ONDANSETRON HCL INJ/PF 4 MG/2 ML SDV ONE (09:35)
[2017-10-21] MEDS ORDERED: MIDAZOLAM 2 MG/2 ML INJ ONE ×2 (09:35→09:36)
[2017-10-21] MEDS ORDERED: NALOXONE HCL INJ/PF 0.4 MG/1 ML SDV ONE (09:35)
[2017-10-21] MEDS ORDERED: DIPHENHYDRAMINE HCL 50 MG/ML VIAL ONE (09:35)
[2017-10-21] MEDS ORDERED: FLUMAZENIL INJ 0.5 MG/5 ML VIAL ONE (09:36)
[2017-10-21] MEDS ORDERED: FENTANYL CITRATE INJ/PF 100 MCG/2 ML AMPUL ONE (09:36)
[2017-10-21] MEDS ORDERED: GLUCAGON,HUMAN RECOMB 1 MG INJ ONE (09:36)
[2017-10-21] MEDS ORDERED: EPINEPHRINE INJ 1 MG/10 ML DISP.SYRIN ONE (09:36)
[2017-10-21] MEDS ORDERED: POTASSI CL 20 MEQ/50 ML RIDER 20 MEQ/50 ML RTUPB IV SCH (10:00)
--- NOTE | 2017-10-21 10:39 | Operative Report ---
Operative Report DATE OF SURGERY: 10/21/17 Operative Report: The risks benefits and alternatives of the procedure explained to the patient in detail and informed consent is obtained.A GIF Olympus video scope was inserted into the patient's mouth and hypopharynx, the esophagus is identified intubated and insufflated, the scope was then advanced through the esophagus stomach and duodenum, retroflexion maneuver is done, the esophagus stomach and first and second portions of the duodenum examined PREOPERATIVE DIAGNOSIS: Questionable achalasia. Retained food in the esophagus on previous upper endoscopy. Questionable stricture. Thickened esophagus POSTOPERATIVE DIAGNOSIS: Was able to complete EGD. Gastritis status post biopsy rule out Helicobacter pylori. Benign gastric polyps. Thickened esophagus due to lack of motility however there is no further food in the esophagus. Distal esophageal junction does not appear to be relaxing. Retroflexed view does not show any mass lesion on the gastric side. We will need manometry as an outpatient. Consideration for POEM OPERATION: EGD with biopsy SURGEON: LILIBETH WALKER ANESTHESIA: Moderate Sedation - 3 mg of Versed, 25 mics of fentanyl. Conscious sedation monitoring time 30 minutes. TISSUE REMOVED OR ALTERED: As noted above. COMPLICATIONS: None. ESTIMATED BLOOD LOSS: None. INTRAOPERATIVE FINDINGS: No esophageal obstruction noted, no stricture, no mass lesions. Patient does likely have achalasia PROCEDURE: Patient tolerated procedure well. She is sent back to her room in good condition. She should be able to tolerate clears. She will need an outpatient manometry study. Thereafter she will need possible consideration for POEM procedure , available at a tertiary institution, [facility]
[2017-10-21] MEDS: ENOXAPARIN SODIUM INJ 40 MG/0.4 ML DISP.SYRIN SUBCUT SCH (11:13)
[2017-10-21] MEDS ORDERED: POTASSIUM CHLORIDE 20 MEQ/50 ML RTU IV SCH (12:00)
[2017-10-21] MEDS: PANTOPRAZOLE SODIUM 40 MG VIAL IV SCH (21:15)
[2017-10-22 05:42] LABS: ANION GAP 14 (5-19); BLOOD UREA NITROGEN 7 mg/dL (7-20); CALCIUM 9.3 mg/dL (8.4-10.2); CARBON DIOXIDE 21 mmol/L (22-30); CHLORIDE 111 mmol/L (98-107); GLUCOSE 70 mg/dL (75-110); POTASSIUM 3.4 mmol/L (3.6-5.0); SODIUM 145.9 mmol/L (137-145)
[2017-10-22 05:44] LABS: ABSOLUTE EOSINOPHILS # (AUTO) 0.3 10^3/uL (0.0-0.6); ABSOLUTE LYMPHOCYTES (AUTO) 1.5 10^3/uL (0.5-4.7); ABSOLUTE MONOCYTES (AUTO) 0.6 10^3/uL (0.1-1.4); ABSOLUTE NEUT (AUTO) 2.9 10^3/uL (1.7-8.2); BASOPHILS % (AUTO) 0.7 % (0-2); EOSINOPHILS % (AUTO) 4.8 % (0-6); HEMATOCRIT 35.5 % (36.0-47.0); HEMOGLOBIN 12.2 g/dL (12.0-15.5); LYMPHOCYTES % (AUTO) 28.9 % (13-45); MEAN CORPUSCULAR HEMOGLOBIN 29.7 pg (27.0-33.4); MEAN CORPUSCULAR HGB CONC 34.3 g/dL (32.0-36.0); MEAN CORPUSCULAR VOLUME 86 fl (80-97); MONOCYTES % (AUTO) 11.6 % (3-13); PLATELET COUNT 192 10^3/uL (150-450); RED BLOOD COUNT 4.11 10^6/uL (3.72-5.28); RED CELL DISTRIBUTION WIDTH 13.1 % (11.5-14.0); TOTAL CELLS COUNTED % (AUTO) 100 %; WHITE BLOOD COUNT 5.3 10^3/uL (4.0-10.5)
[2017-10-22] MEDS ORDERED: POTASSIUM CHLORIDE 20 MEQ/15 ML UDCUP PO ONE (08:30)
[2017-10-22] MEDS: ENOXAPARIN SODIUM INJ 40 MG/0.4 ML DISP.SYRIN SUBCUT SCH (08:30)
--- NOTE | 2017-10-22 08:30 | PDOC PROGRESS REPORT ---
Subjective Progress Note for:: 10/22/17 Subjective:: Patient states that she is tolerating liquids, but would prefer to be eating a full meal. She is anxious to arrange for the surgery/further treatment of the esophageal problem. Further arrangements are to be made later today. ROS: denies pain. No dyspnea. Able to ambulate without difficulty. Reason For Visit: DYSPHAGIA,ACHALASIA,DEHYDRATION,HYPOGLYCEMIA Physical Exam Vital Signs: Temp Pulse Resp BP Pulse Ox 97.9 F 68 16 137/56 H 96 10/21/17 23:56 10/21/17 23:56 10/21/17 23:56 10/21/17 23:56 10/21/17 23:56 Intake & Output 10/21/17 10/22/17 10/23/17 06:59 06:59 06:59 Intake Total 2704 Balance 2704 Weight 60 kg 59.9 kg General appearance: PRESENT: no acute distress Respiratory exam: PRESENT: clear to auscultation chad, unlabored Cardiovascular exam: PRESENT: RRR Extremities exam: ABSENT: pedal edema Neurological exam: PRESENT: alert, awake, oriented to person, oriented to place , oriented to time, oriented to situation Psychiatric exam: PRESENT: appropriate affect Skin exam: PRESENT: normal color Results Laboratory Results: 10/22/17 04:04 10/22/17 04:04 10/22/17 10/22/17 04:04 04:04 WBC 5.3 RBC 4.11 Hgb 12.2 Hct 35.5 L MCV 86 MCH 29.7 MCHC 34.3 RDW 13.1 Plt Count 192 Seg Neutrophils % 54.0 Lymphocytes % 28.9 Monocytes % 11.6 Eosinophils % 4.8 Basophils % 0.7 Absolute Neutrophils 2.9 Absolute Lymphocytes 1.5 Absolute Monocytes 0.6 Absolute Eosinophils 0.3 Absolute Basophils 0.0 Sodium 145.9 H Potassium 3.4 L Chloride 111 H Carbon Dioxide 21 L Anion Gap 14 BUN 7 Creatinine 0.44 L Est GFR ( Amer) > 60 Est GFR (Non-Af Amer) > 60 Glucose 70 L Calcium 9.3 Magnesium 1.7 Impressions: Chest CT 10/19/17 20:20 IMPRESSION: Massive dilatation of esophagus. Contains contrast. Generalized thickening of the esophageal wall distally but no definitive mass lesion in either in the distal esophagus or in the proximal stomach. Possibly achalasia. 2.4 cm spiculated mass in the right upper lobe. 2.7 cm opacity at the left base which may represent scar infiltrate. Soft Tissue Neck CT 10/19/17 20:20 IMPRESSION: Nodular changes at the level of the larynx worrisome for mass lesion on the right side. Cysts and calcification right lobe of the thyroid gland. Thyroid Ultrasound 10/21/17 00:00 IMPRESSION: Multiple benign-appearing colloid cysts and benign right lower pole thyroid calcification. Assessment & Plan - Diagnosis (1) Achalasia of esophagus Is this a current diagnosis for this admission?: Yes Plan: To have definitive treatment at tertiary center. Await further biopsies performed yesterday. (2) Laryngeal mass Is this a current diagnosis for this admission?: Yes Plan: To be evaluated by ENT in the near future. (3) Mass of right lung Is this a current diagnosis for this admission?: Yes Plan: Plan for PET scan as outpatient after the esophagus has been treated. - Plan Summary Plan Summary: Agree with plans to treat esophagus first, awaiting pathology reports. Will follow as outpatient as well.
--- NOTE | 2017-10-22 08:58 | PDOC PROGRESS REPORT ---
Subjective Progress Note for:: 10/21/17 Subjective:: The patient is resting in her bed. She had her upper endoscopy performed this morning and tolerated it well. It is felt that she likely has achalasia. At this point she is doing a trial of clear liquids. So far she has been able to drink some tea. She denies fever chills. No chest pain, shortness of breath or cough. No nausea vomiting so far today. No abdominal pain. Her only complaint is that she cannot swallow. She has no urinary complaints Reason For Visit: DYSPHAGIA,ACHALASIA,DEHYDRATION,HYPOGLYCEMIA Physical Exam Vital Signs: Temp Pulse Resp BP Pulse Ox 98.2 F 63 16 140/52 H 98 10/21/17 20:15 10/21/17 20:15 10/21/17 20:15 10/21/17 20:15 10/21/17 20:15 Intake & Output 10/20/17 10/21/17 10/22/17 06:59 06:59 06:59 Intake Total 1704 Balance 1704 Weight 60 kg General appearance: PRESENT: no acute distress, well-developed, well-nourished Head exam: PRESENT: atraumatic, normocephalic Respiratory exam: PRESENT: clear to auscultation chad. ABSENT: rales, rhonchi, wheezes Cardiovascular exam: PRESENT: RRR. ABSENT: diastolic murmur, rubs, systolic murmur GI/Abdominal exam: PRESENT: normal bowel sounds, soft. ABSENT: distended, guarding, mass, organolmegaly, rebound, tenderness Rectal exam: PRESENT: deferred Extremities exam: PRESENT: full ROM. ABSENT: calf tenderness, clubbing, pedal edema Musculoskeletal exam: PRESENT: ambulatory Neurological exam: PRESENT: alert, awake, oriented to person, oriented to place , oriented to time, oriented to situation, CN II-XII grossly intact. ABSENT: motor sensory deficit Psychiatric exam: PRESENT: appropriate affect, normal mood. ABSENT: homicidal ideation, suicidal ideation Skin exam: PRESENT: dry, intact, warm. ABSENT: cyanosis, rash Results Laboratory Results: 10/21/17 06:19 10/21/17 06:19 Sodium 144.3 Potassium 3.4 L Chloride 113 H Carbon Dioxide 20 L Anion Gap 11 BUN 9 Creatinine 0.41 L Est GFR ( Amer) > 60 Est GFR (Non-Af Amer) > 60 Glucose 89 Calcium 9.2 Impressions: Chest CT 10/19/17 20:20 IMPRESSION: Massive dilatation of esophagus. Contains contrast. Generalized thickening of the esophageal wall distally but no definitive mass lesion in either in the distal esophagus or in the proximal stomach. Possibly achalasia. 2.4 cm spiculated mass in the right upper lobe. 2.7 cm opacity at the left base which may represent scar infiltrate. Soft Tissue Neck CT 10/19/17 20:20 IMPRESSION: Nodular changes at the level of the larynx worrisome for mass lesion on the right side. Cysts and calcification right lobe of the thyroid gland. Thyroid Ultrasound 10/21/17 00:00 IMPRESSION: Multiple benign-appearing colloid cysts and benign right lower pole thyroid calcification. Assessment & Plan - Diagnosis (1) Dysphagia Qualifiers: Dysphagia type: pharyngoesophageal phase Qualified Code(s): R13.14 - Dysphagia, pharyngoesophageal phase Is this a current diagnosis for this admission?: Yes Plan: We are doing a trial of clear liquids. She does have an abnormal CT scan of the neck with some nodular areas noted at the level of the larynx. She had an EGD performed this morning that did not have any acute findings. She does have an enlarged thyroid. Ultrasound revealed multiple colloid cysts. Overall she will follow-up with GI as an outpatient. We need to document that she is able to tolerate some p.o. intake prior to discharge (2) Lung mass Is this a current diagnosis for this admission?: Yes Plan: She is being followed by oncology. The patient wants no further workup for the lung mass until she has dealt with her esophageal issues. (3) Laryngeal mass Is this a current diagnosis for this admission?: Yes Plan: It is unclear at this point. Workup is ongoing. (4) Metabolic acidosis Is this a current diagnosis for this admission?: Yes Plan: Improving (5) Achalasia Is this a current diagnosis for this admission?: Yes Plan: The GI service is following. The patient would like to have a surgical procedure to correct this. (6) Hypernatremia Is this a current diagnosis for this admission?: Yes Plan: Likely due to dehydration (7) Dehydration Is this a current diagnosis for this admission?: Yes Plan: Resolved with IV fluid hydration (8) Moderate protein-calorie malnutrition Is this a current diagnosis for this admission?: Yes Plan: Due to severe dysphasia. Continue clear liquid diet and supplements (9) Hypoglycemia Is this a current diagnosis for this admission?: Yes Plan: Due to poor p.o. intake. Improved - Time Time Spent with patient: 25-34 minutes - Inpatient Certification Medical Necessity: Other - Inpatient hospitalization remains necessary. We will need to see if she can tolerate p.o. intake prior to discharge. Hopefully we can get her stabilized and further workup can be obtained as an outpatient.
--- NOTE | 2017-10-22 10:07 | PDOC PROGRESS REPORT ---
Subjective Progress Note for:: 10/22/17 Subjective:: The patient is a 72-year-old female who presented to the emergency room with a 2 week history of increasing ill inability to tolerate oral intake. Imaging studies revealed a nodular area concerning for malignancy at the level of the larynx and also a lung lesion. The patient has been evaluated by the GI service as well as oncology. In regards to her lung lesions she is just guided to pursue outpatient workup after her esophageal issues have been dealt with. In regards to her esophageal issues she had a thyroid ultrasound which reveals multiple colloid cysts. She had an upper endoscopy performed yesterday which did not note a mass lesion. At this point the working diagnosis is that she has achalasia. Dr. Riley has recommended a manometry which will need to be performed as an outpatient. He also believes she is going to need evaluation for potential POEM procedure at a tertiary center. The patient had multiple electrolyte abnormalities and hypoglycemia at the time of admission. She has been hydrated and improving. Yesterday she was started on a clear liquid diet and so far she seems to be tolerating it although she does have difficulty swallowing. I have spoken at length to the patient's daughter on the phone this morning. Her name is Lillie Trujillo [phone]. She has concerns about the patient being able to maintain her hydration and was wondering whether we could potentially transfer her to have the surgery done this weekend. After a long discussion I think she has a better understanding. She would like for me to keep the patient in the hospital today to maximize her status and see if we could talk advance her diet to a full liquid diet prior to discharge. I do believe this is her manometry has been scheduled for 8:30 tomorrow morning and we will try to get her out of the hospital first thing so that she can keep this appointment. Reason For Visit: DYSPHAGIA,ACHALASIA,DEHYDRATION,HYPOGLYCEMIA Physical Exam Vital Signs: Temp Pulse Resp BP Pulse Ox 97.9 F 68 16 137/56 H 96 10/21/17 23:56 10/21/17 23:56 10/21/17 23:56 10/21/17 23:56 10/21/17 23:56 Intake & Output 10/21/17 10/22/17 10/23/17 06:59 06:59 06:59 Intake Total 2704 Balance 2704 Weight 60 kg 59.9 kg General appearance: PRESENT: no acute distress, thin, well-developed Mouth exam: PRESENT: moist, tongue midline, other - Enlarged thyroid noted Neck exam: PRESENT: thyromegaly Respiratory exam: PRESENT: clear to auscultation chad. ABSENT: rales, rhonchi, wheezes Cardiovascular exam: PRESENT: RRR. ABSENT: diastolic murmur, rubs, systolic murmur GI/Abdominal exam: PRESENT: normal bowel sounds, soft. ABSENT: distended, guarding, mass, organolmegaly, rebound, tenderness Rectal exam: PRESENT: deferred Extremities exam: PRESENT: full ROM. ABSENT: calf tenderness, clubbing, pedal edema Musculoskeletal exam: PRESENT: ambulatory Neurological exam: PRESENT: alert, awake, oriented to person, oriented to place , oriented to time, oriented to situation, CN II-XII grossly intact. ABSENT: motor sensory deficit Psychiatric exam: PRESENT: appropriate affect, normal mood. ABSENT: homicidal ideation, suicidal ideation Skin exam: PRESENT: dry, intact, warm. ABSENT: cyanosis, rash Results Laboratory Results: 10/22/17 04:04 10/22/17 04:04 10/22/17 10/22/17 04:04 04:04 WBC 5.3 RBC 4.11 Hgb 12.2 Hct 35.5 L MCV 86 MCH 29.7 MCHC 34.3 RDW 13.1 Plt Count 192 Seg Neutrophils % 54.0 Lymphocytes % 28.9 Monocytes % 11.6 Eosinophils % 4.8 Basophils % 0.7 Absolute Neutrophils 2.9 Absolute Lymphocytes 1.5 Absolute Monocytes 0.6 Absolute Eosinophils 0.3 Absolute Basophils 0.0 Sodium 145.9 H Potassium 3.4 L Chloride 111 H Carbon Dioxide 21 L Anion Gap 14 BUN 7 Creatinine 0.44 L Est GFR ( Amer) > 60 Est GFR (Non-Af Amer) > 60 Glucose 70 L Calcium 9.3 Magnesium 1.7 Impressions: Chest CT 10/19/17 20:20 IMPRESSION: Massive dilatation of esophagus. Contains contrast. Generalized thickening of the esophageal wall distally but no definitive mass lesion in either in the distal esophagus or in the proximal stomach. Possibly achalasia. 2.4 cm spiculated mass in the right upper lobe. 2.7 cm opacity at the left base which may represent scar infiltrate. Soft Tissue Neck CT 10/19/17 20:20 IMPRESSION: Nodular changes at the level of the larynx worrisome for mass lesion on the right side. Cysts and calcification right lobe of the thyroid gland. Thyroid Ultrasound 10/21/17 00:00 IMPRESSION: Multiple benign-appearing colloid cysts and benign right lower pole thyroid calcification. Assessment & Plan - Diagnosis (1) Dysphagia Qualifiers: Dysphagia type: pharyngoesophageal phase Qualified Code(s): R13.14 - Dysphagia, pharyngoesophageal phase Is this a current diagnosis for this admission?: Yes Plan: At this point the patient is tolerating clear liquid diet. We will try a trial of full liquids and see if she can tolerate it. I am not so sure she is going to be able to do this. It is my understanding that Dr. Riley is trying to get in touch with the surgeon regarding the patient. Hopefully we will have more information as the day progresses. (2) Lung mass Is this a current diagnosis for this admission?: Yes Plan: Workup will be obtained as an outpatient. She wants to deal with her esophageal issues first. Oncology is following and we appreciate their assistance (3) Laryngeal mass Is this a current diagnosis for this admission?: Yes Plan: No evidence of mass lesion was noted on upper endoscopy. (4) Metabolic acidosis Is this a current diagnosis for this admission?: Yes Plan: Improving. (5) Achalasia Is this a current diagnosis for this admission?: Yes Plan: She will need a POEM procedure performed at a tertiary center. Dr. Riley is working on this. (6) Hypernatremia Is this a current diagnosis for this admission?: Yes Plan: Her level is still high but improving. Likely due to dehydration (7) Dehydration Is this a current diagnosis for this admission?: Yes Plan: We will continue IV fluids today. She is improving. (8) Moderate protein-calorie malnutrition Is this a current diagnosis for this admission?: Yes Plan: Continue supplements. She has tolerated Ensure clear. The dietitian is following. (9) Hypoglycemia Is this a current diagnosis for this admission?: Yes Plan: Her blood sugar is on the low side but no true hypoglycemic episodes. - Time Time Spent with patient: 35 or more minutes - Inpatient Certification Medical Necessity: Need For IV Fluids - Inpatient hospitalization remains necessary. The patient still has some electrolyte abnormalities and she is requiring parenteral fluids today. I am concerned that she will not be able to take in enough intake to maintain her hydration. I would like to see if she could tolerate full liquids prior to leaving the hospital. She likely will be discharged in the morning to have her outpatient manometry and I would like to try to maximize her status here in the hospital today. Hopefully she will be discharged in the morning., Other
[2017-10-22 12:56] VITALS: BP 129/53
--- NOTE | 2017-10-22 14:36 | PDOC PROGRESS REPORT ---
Subjective Progress Note for:: 10/22/17 Subjective:: Daughter called to say her mom not able to leave hospital till tomorrow patient needs manometry study but can only be done as an outpatient ( per [facility] protocol) patient has suspected achalasia and needs confirmation for potential referral for POEM procedure I have confirmed that it can be done at [facility] the issue now is that patient needs to have discharge orders by 10/22/17, so that patient can have outpatient procedure done 10/23/17 the only other time to do this would be Thursday10/27/17 once the manometry study is performed, this along with report from EGD and results of Barium swallow can be forwarded to Dr Graves's office in [facility] for consideration of POEM I have already spoken to daughter and made her aware that the consultation would be done next week at the earliest , but more than likely later than that, she had expressed understanding and verbalized that to me when I made the phone call to her earlier today from my office the issue is now one of potential discharge multiple people including lifestyle coordinator are in contact with the patient' s daughter who seems to be the patient's only mode of transportation at this point. Ms Field , the hospitalist physician has been updated with respect to the problem patient appears only be able to be picked up tomorrow 10/23/17. The manometry procedure then would not be covered by insurance since the date of the procedure coincides with the date of discharge. Option #2: patient can be discharged and she can return on another day for the manometry even if she is transferred to a tertiary institution, she may not be able to get an inpatient manometry study patient's daughter has been offered all of these options. As of the last upated at 1430 hours, patient is going to be discharged today. Reason For Visit: DYSPHAGIA,ACHALASIA,DEHYDRATION,HYPOGLYCEMIA Physical Exam Vital Signs: Temp Pulse Resp BP Pulse Ox 98.0 F 60 20 129/53 H 96 10/22/17 13:00 10/22/17 13:00 10/22/17 13:00 10/22/17 13:00 10/22/17 13:00 Intake & Output 10/21/17 10/22/17 10/23/17 06:59 06:59 06:59 Intake Total 2704 Balance 2704 Weight 60 kg 59.9 kg General appearance: PRESENT: no acute distress, well-developed, well-nourished Head exam: PRESENT: atraumatic, normocephalic Eye exam: PRESENT: EOMI, PERRLA. ABSENT: scleral icterus Mouth exam: PRESENT: moist, neck supple Throat exam: ABSENT: tonsillar exudate, tonsillogmegaly Neck exam: ABSENT: meningismus, tenderness, thyromegaly Respiratory exam: PRESENT: symmetrical, unlabored. ABSENT: tachypnea, wheezes Cardiovascular exam: PRESENT: RRR, +S1, +S2 GI/Abdominal exam: PRESENT: soft. ABSENT: rebound, rigid, tenderness Neurological exam: PRESENT: oriented to time, oriented to situation, CN II-XII grossly intact Skin exam: PRESENT: normal color. ABSENT: mottled, pallor, urticaria, vesicles Results Laboratory Results: 10/22/17 04:04 10/22/17 04:04 10/22/17 10/22/17 04:04 04:04 WBC 5.3 RBC 4.11 Hgb 12.2 Hct 35.5 L MCV 86 MCH 29.7 MCHC 34.3 RDW 13.1 Plt Count 192 Seg Neutrophils % 54.0 Lymphocytes % 28.9 Monocytes % 11.6 Eosinophils % 4.8 Basophils % 0.7 Absolute Neutrophils 2.9 Absolute Lymphocytes 1.5 Absolute Monocytes 0.6 Absolute Eosinophils 0.3 Absolute Basophils 0.0 Sodium 145.9 H Potassium 3.4 L Chloride 111 H Carbon Dioxide 21 L Anion Gap 14 BUN 7 Creatinine 0.44 L Est GFR ( Amer) > 60 Est GFR (Non-Af Amer) > 60 Glucose 70 L Calcium 9.3 Magnesium 1.7 Impressions: Chest CT 10/19/17 20:20 IMPRESSION: Massive dilatation of esophagus. Contains contrast. Generalized thickening of the esophageal wall distally but no definitive mass lesion in either in the distal esophagus or in the proximal stomach. Possibly achalasia. 2.4 cm spiculated mass in the right upper lobe. 2.7 cm opacity at the left base which may represent scar infiltrate. Soft Tissue Neck CT 10/19/17 20:20 IMPRESSION: Nodular changes at the level of the larynx worrisome for mass lesion on the right side. Cysts and calcification right lobe of the thyroid gland. Thyroid Ultrasound 10/21/17 00:00 IMPRESSION: Multiple benign-appearing colloid cysts and benign right lower pole thyroid calcification. Assessment & Plan - Diagnosis (1) Inability to swallow Is this a current diagnosis for this admission?: Yes Plan: EGD findings are suspicious for Achalasia patient will need manometry study she is being discharged today as of the last update Will be able to get manometry study done tomorrow once results are obtained, will forward EGD report, barium swallow and results of manometry results to Dr Graves When and how quick Pricilla can see patient, then , will no longer be under my direct control. patient's daughter has been made aware of this fact her manometry study has been scheduled for 10/23/17 at 8:30am - Time Time Spent with patient: 15-24 minutes
--- NOTE | 2017-10-22 14:39 | PDOC DISCHARGE SUMMARY ---
General - Admit/Disc Date/PCP Admission Date/Primary Care Provider: 10/20/17 12:59 [employer]: Dr. Riley Oncologist: Dr. Singer ENT: Dr. Baker Discharge Date: 10/22/17 - Discharge Diagnosis (1) Dysphagia Is this a current diagnosis for this admission?: Yes Summary: The patient likely has achalasia. She is scheduled for an outpatient manometry study to be performed in the morning. Dr. Riley is going to set up outpatient surgical follow-up for the patient. (2) Lung mass Is this a current diagnosis for this admission?: Yes Summary: She will defer any workup on this lung mass until after her esophageal issues which are more acute have been dealt with. (3) Laryngeal mass Is this a current diagnosis for this admission?: Yes Summary: She was seen by Dr. Lino corbett today who performed the procedure. No evidence of laryngeal mass. This appears to be ruled out. (4) Metabolic acidosis Is this a current diagnosis for this admission?: Yes Summary: Improving. (5) Achalasia Is this a current diagnosis for this admission?: Yes Summary: She will be set up for surgical consultation after her manometry at a tertiary center for potential POEM procedure (6) Hypernatremia Is this a current diagnosis for this admission?: Yes Summary: Improving. (7) Dehydration Is this a current diagnosis for this admission?: Yes Summary: Resolved with IV fluid hydration (8) Moderate protein-calorie malnutrition Is this a current diagnosis for this admission?: Yes Summary: I recommend a liquid multivitamin in the short-term. Also ensure clear (9) Hypoglycemia Is this a current diagnosis for this admission?: Yes Summary: Much improved. She has had no further episodes - Additional Information Resuscitation Status: Full Code Discharge Diet: As Tolerated, Other (Comments) - clear liquid Discharge Activity: Activity As Tolerated, Balance Activity w/Rest History of Present Illness Patient complains of: Difficulty swallowing History of Present Illness: KAITLYNN LOPEZ is a 72 year old female who presented to the emergency room with a 2 week history of worsening dysphagia Hospital Course Hospital Course: he patient is a 72-year-old female who presented to the emergency room with a 2 week history of increasing ill inability to tolerate oral intake. Imaging studies revealed a nodular area concerning for malignancy at the level of the larynx and also a lung lesion. The patient has been evaluated by the GI service as well as oncology. In regards to her lung lesions she is just guided to pursue outpatient workup after her esophageal issues have been dealt with. In regards to her esophageal issues she had a thyroid ultrasound which reveals multiple colloid cysts. She had an upper endoscopy performed yesterday which did not note a mass lesion. At this point the working diagnosis is that she has achalasia. Dr. Riley has recommended a manometry which will need to be performed as an outpatient. He also believes she is going to need evaluation for potential POEM procedure at a tertiary center. The patient had multiple electrolyte abnormalities and hypoglycemia at the time of admission. She has been hydrated and improving. Yesterday she was started on a clear liquid diet and so far she seems to be tolerating it although she does have difficulty swallowing. I have spoken at length to the patient's daughter on the phone this morning. Her name is Lillie Trujillo . She has concerns about the patient being able to maintain her hydration and was wondering whether we could potentially transfer her to have the surgery done this weekend. After a long discussion I think she has a better understanding. The patient is stable at this point. She is tolerating a clear liquid diet. Manometry has to be done as an outpatient. I have discussed the situation with Dr. Riley as well. He is made contact with the surgeon who would potentially perform the procedure and is setting up an outpatient appointment in the near future. After a long discussion the patient's daughter is going to pick her up tonight. She has an outpatient manometry scheduled for 8:30 tomorrow morning. The patient has been encouraged to not try to eat solid foods as this was causing the vomiting that she was having. She is tolerating clear liquids and I would continue those in the short-term. At this point maximum hospital benefit has been reached. She will be discharged home today in stable condition. Physical Exam Vital Signs: Temp Pulse Resp BP Pulse Ox 98.0 F 60 20 129/53 H 96 10/22/17 13:00 10/22/17 13:00 10/22/17 13:00 10/22/17 13:00 10/22/17 13:00 Intake & Output 10/21/17 10/22/17 10/23/17 06:59 06:59 06:59 Intake Total 2704 Balance 2704 Weight 60 kg 59.9 kg General appearance: PRESENT: no acute distress, well-developed, well-nourished Head exam: PRESENT: atraumatic, normocephalic Mouth exam: PRESENT: moist, tongue midline Respiratory exam: PRESENT: clear to auscultation chad. ABSENT: rales, rhonchi, wheezes Cardiovascular exam: PRESENT: RRR. ABSENT: diastolic murmur, rubs, systolic murmur GI/Abdominal exam: PRESENT: normal bowel sounds, soft. ABSENT: distended, guarding, mass, organolmegaly, rebound, tenderness Rectal exam: PRESENT: deferred Extremities exam: PRESENT: full ROM. ABSENT: calf tenderness, clubbing, pedal edema Neurological exam: PRESENT: alert, awake, oriented to person, oriented to place , oriented to time, oriented to situation, CN II-XII grossly intact. ABSENT: motor sensory deficit Psychiatric exam: PRESENT: appropriate affect, normal mood. ABSENT: homicidal ideation, suicidal ideation Skin exam: PRESENT: dry, intact, warm. ABSENT: cyanosis, rash Results Laboratory Results: 10/22/17 04:04 10/22/17 04:04 10/22/17 10/22/17 04:04 04:04 WBC 5.3 RBC 4.11 Hgb 12.2 Hct 35.5 L MCV 86 MCH 29.7 MCHC 34.3 RDW 13.1 Plt Count 192 Seg Neutrophils % 54.0 Lymphocytes % 28.9 Monocytes % 11.6 Eosinophils % 4.8 Basophils % 0.7 Absolute Neutrophils 2.9 Absolute Lymphocytes 1.5 Absolute Monocytes 0.6 Absolute Eosinophils 0.3 Absolute Basophils 0.0 Sodium 145.9 H Potassium 3.4 L Chloride 111 H Carbon Dioxide 21 L Anion Gap 14 BUN 7 Creatinine 0.44 L Est GFR ( Amer) > 60 Est GFR (Non-Af Amer) > 60 Glucose 70 L Calcium 9.3 Magnesium 1.7 Impressions: Chest CT 10/19/17 20:20 IMPRESSION: Massive dilatation of esophagus. Contains contrast. Generalized thickening of the esophageal wall distally but no definitive mass lesion in either in the distal esophagus or in the proximal stomach. Possibly achalasia. 2.4 cm spiculated mass in the right upper lobe. 2.7 cm opacity at the left base which may represent scar infiltrate. Soft Tissue Neck CT 10/19/17 20:20 IMPRESSION: Nodular changes at the level of the larynx worrisome for mass lesion on the right side. Cysts and calcification right lobe of the thyroid gland. Thyroid Ultrasound 10/21/17 00:00 IMPRESSION: Multiple benign-appearing colloid cysts and benign right lower pole thyroid calcification. Qualifiers - * PATIENT BEING DISCHARGED WITH ANY OF THE FOLLOWING DIAGNOSIS: No Plan Discharge Plan: Discharge to home under the care of her daughter. Comeback to the hospital tomorrow morning for an outpatient manometry appointment. Outpatient follow-up will be arranged with a surgeon by Dr. Riley If the patient develops hypoglycemia or severe dehydration bring her back to the hospital. It would be helpful to take her to the hospital but she plans to have the procedure at but certainly come to the nearest hospital if there is a life-threatening situation. Time Spent: Greater than 30 Minutes
--- NOTE | 2017-10-24 08:44 | Progress Note ---
Provider Note Provider Note: Addendum: Late Entry documentation patient had been scheduled for outpatient manomety study on 10/23 patient did not show for procedure however I have found out that the procedure had actually been cancelled prior to the patient being discharged. apparently procedure cancelled by Sultana Wooten RN. I had received a call from the billing dept of [facility] and was advised that procedure as outpatient would take at least 72 hours for pre-authorization.
== END 2017-10-22 17:07 | disposition home or self-care (01) | DRG 392 ==
LOC: ER 15:13 → INTOOBSV 20:54 → OBSVTOIN 20:54 → EH 20:54 → 5 23:11 → OBSVTOIN 10-20 12:59
PROVIDERS: ADMIT Internal Medicine; ATTEND Internal Medicine
PROC: 0DD68ZX Extraction of Stomach, Via Natural or Artificial Opening Endoscopic, Diagnostic (ICD-10-PCS; principal; 2017-10-21 11:30)
DX: K22.0 Achalasia of cardia (principal); E87.0 Hyperosmolality and hypernatremia; E87.2 Acidosis; E44.0 Moderate protein-calorie malnutrition; Z66 Do not resuscitate; E86.0 Dehydration; E16.2 Hypoglycemia, unspecified; R13.14 Dysphagia, pharyngoesophageal phase; R91.8 Other nonspecific abnormal finding of lung field; K29.70 Gastritis, unspecified, without bleeding; K31.7 Polyp of stomach and duodenum; K22.8 Other specified diseases of esophagus; R42 Dizziness and giddiness; Z68.22 Body mass index [BMI] 22.0-22.9, adult
CPT/HCPCS: 36415; 43239; 70491; 71260; 76536; 80048; 80053; 81001; 82962; 83735; 84100; 85025; 88305; 96360; 99285; G0378; J0171; J1200; J1610; J1650; J2250; J2310; J2405; J3010; J3480; J3490; J7030; S0164